=== PATIENT | male | born 1965 | race Caucasian/White ===

== ENCOUNTER → 2022-03-28 | Outpatient (CLI) | payer MEDICARE, OTHER ==
[~2022-03-28] MED LIST: BUSPAR 10MG10 MG PO; CLARITIN10 M2 PO; COLACE 100MG C100 MG PO; LOTENSIN40 MG PO; NORVASC10 MG PO; TYLENOL 8 HOUR650 MG PO; VITAMIN C1000 MG PO; VITAMIN D21250 MCG PO
== END ==
LOC: ECHO 09:00
DX: R01.1 Cardiac murmur, unspecified (principal); I08.1 Rheumatic disorders of both mitral and tricuspid valves
CPT/HCPCS: ECHO; 93306